=== PATIENT | male | born 1990 | race Caucasian/White ===

== ENCOUNTER → 2017-03-26 | Outpatient (CLI) | payer BC | LOC: COL.RAD 10:40 | DX: K63.89 Other specified diseases of intestine (principal) | CPT/HCPCS: Q9967 ==

== ENCOUNTER → 2021-03-04 | Outpatient (CLI) | payer BC ==
[2021-03-04 10:26] LABS: BASO # 0.1 K/mm3 (0.0-0.2); BASO % 0.7 % (0.0-2.0); EOS # 0.3 K/mm3 (0.0-0.7); EOS % 3.5 % (0.0-4.0); GRAN # 5.4 K/mm3 (1.4-6.5); GRAN % 57.9 % (42.2-75.2); HEMATOCRIT 46.7 % (42.0-52.0); HEMOGLOBIN 15.9 g/dl (13.5-18.0); LYMPH # 2.8 K/mm3 (1.2-3.4); LYMPH % 29.4 % (20.0-51.0); MEAN CELL VOLUME 82 fl (80.0-100.0); MEAN CORPUSCULAR HEMOGLOBIN 28 pg (27-31); MEAN CORPUSCULAR HGB CONC 34 g/dl (33.0-37.0); MEAN PLATELET VOLUME 8.8 fl (7.4-10.4); MONO # 0.8 K/mm3 (0.1-0.6); MONO % 8.2 % (1.7-9.3); PLATELET COUNT 266 K/mm3 (130-400); RED BLOOD COUNT 5.71 M/mm3 (4.20-5.60); REDCELL DISTRIBUTION WIDTH-CV 12.2 % (11.5-14.5)
[2021-03-04 10:46] LABS: ALBUMIN 4.5 gm/dL (3.5-5.0); C-REACTIVE PROTEIN 2.05 mg/dL (0.00-0.50); CALCIUM 9.4 mg/dL (8.4-10.2); CREATININE, serum 1.18 mg/dL (0.72-1.25); POTASSIUM 4.5 mmol/L (3.5-4.5); TOTAL PROTEIN 7.7 gm/dL (6.2-8.1)
== END ==
LOC: COL.LAB 09:46
DX: R10.32 Left lower quadrant pain (principal)

== ENCOUNTER 2021-08-21 08:12 | Emergency (ER) | payer BC ==
[~2021-08-21] VITALS: Ht 182.9 cm; Wt 113.6 kg
[2021-08-21 08:22] VITALS: BP 143/101; TEMP 96.6
[2021-08-21] MEDS ORDERED: FLEXERIL5 MG PO (08:32)
[2021-08-21] MEDS ORDERED: MOBIC15 MG PO (08:33)
[2021-08-21] MEDS ORDERED: PERCOCET 325 MG1 TA2 PO (09:56)
[2021-08-21] MEDS ORDERED: PREDNISONE20 MG PO (09:58)
[2021-08-21 10:11] VITALS: PULSE 77
== END 2021-08-21 10:11 | disposition home or self-care (01) ==
LOC: COL.ER 08:12
DX: M54.16 Radiculopathy, lumbar region (principal)
CPT/HCPCS: J2270; J2360